=== PATIENT | female | born 1955 | race American Indian/Alaskan Native ===

== ENCOUNTER 2017-03-24 22:41 | Emergency (ER) | payer MEDICARE, OTHER ==
[2017-03-25 01:04] VITALS: BP 130/76
[2017-03-25] MEDS ORDERED: Sodium Chloride 0.9% 10 ML Syringe FLUSH PRN (01:22)
[2017-03-25] MEDS ORDERED: Morphine 4 MG/ML Syringe IVPUSH ONE (01:22)
[2017-03-25] MEDS ORDERED: Ondansetron 4 MG/2 ML SDV IVPUSH ONE (01:22)
--- NOTE | 2017-03-25 01:29 | EDM.PDOC ---
ED HPI GENERAL MEDICAL PROBLEM - General Chief Complaint: Abdominal Pain Stated Complaint: LOWER ABDOMINAL PAIN Time Seen by Provider: 03/25/17 01:04 Source of Information: Reports: Patient, Old Records, RN Notes Reviewed History Limitations: Reports: No Limitations - History of Present Illness INITIAL COMMENTS - FREE TEXT/NARRATIVE: 06.04 brought by her son Chief complaint Abdominal pain and diarrhea History of present illness 61-year-old female with history of well-controlled diabetes, bariatric surgery, cholecystectomy, presents with gradual onset abdominal pain 3 days ago. Associated with nausea but no vomiting. Diarrhea since the onset, 4 times today. No bleeding in the stool. Decrease sleep last night and tonight because of the lower abdominal pain. No radiation No fever or chills She was able to drink fluids adequately today but her appetite was decreased Pain aggravated by walking or by deep breath No history of similar Does use marijuana frequently and heroin he infrequently, has chronic back pain abdomen Pain Score (Numeric/FACES): 9 - Related Data Allergies Allergy/AdvReac Type Severity Reaction Status Date / Time ibuprofen AdvReac Nausea Verified 03/25/17 00:59 ketorolac tromethamine AdvReac Nausea Verified 03/25/17 00:59 [From Toradol] metformin AdvReac Nausea Verified 03/25/17 00:59 Home Meds: Home Meds Aspirin [Ecotrin] 81 mg PO DAILY 03/26/14 [History] Calcium Citrate/Vitamin D3 [[place] Calcium D (200 MG Calcium)] 1 tab PO DAILY [History] Cyanocobalamin (Vitamin B12) [Vitamin B12] 1,000 mcg IM Q30D 03/26/14 [History] Docusate Sodium [Colace] 100 mg PO DAILY 03/26/14 [History] Ferrous Gluconate [Ferrous Gluconate] 324 mg PO DAILY 03/26/14 [History] Insulin Detemir [Levemir] 10 units SQ BID 03/26/14 [History] Ranitidine HCl [Ranitidine] 150 mg PO DAILY 03/26/14 [History] Venlafaxine [Effexor XR] 150 mg PO DAILY 03/26/14 [History] Cyclobenzaprine HCl [Cyclobenzaprine HCl] 10 mg PO TID PRN 10/29/15 [History] Gabapentin [Gabapentin] 400 mg PO TID 10/29/15 [History] Ondansetron [Ondansetron ODT] 4 mg PO TID PRN #5 tab.moosedis 03/25/17 [Rx] Past Medical History Cardiovascular History: Reports: Hypertension Gastrointestinal History: Reports: GERD [employer] History: Reports: , Spontaneous Musculoskeletal History: Reports: Back Pain, Chronic, Fracture, Osteoarthritis Neurological History: Reports: Headaches, Chronic Psychiatric History: Reports: Anxiety, Depression Endocrine/Metabolic History: Reports: Diabetes, Type II Hematologic History: Reports: B12 Deficiency - Infectious Disease History Infectious Disease History: Reports: Chicken Pox - Past Surgical History GI Surgical History: Reports: Bariatric Procedure, Cholecystectomy, Colonoscopy Female Surgical History: Reports: Section Musculoskeletal Surgical History: Reports: Other (See Below) Social & Family History - Tobacco Use Smoking Status *Q: Current Every Day Smoker Years of Tobacco use: 5 Packs/Tins Daily: 1 Used Tobacco, but Quit: No Second Hand Smoke Exposure: Yes - Caffeine Use Caffeine Use: Reports: Coffee, Soda - Alcohol Use Days Per Week of Alcohol Use: 2 Number of Drinks Per Day: 3 Total Drinks Per Week: 6 - Recreational Drug Use Recreational Drug Use: Yes Recreational Drug Type: Reports: Heroin, Marijuana/Hashish Recreational Drug Use Frequency: Monthly ED ROS GENERAL - Review of Systems Review Of Systems: See Below Constitutional: Reports: Fatigue, Decreased Appetite. Denies: Fever, Chills HEENT: Reports: No Symptoms Respiratory: Reports: No Symptoms Cardiovascular: Reports: No Symptoms GI/Abdominal: Reports: Abdominal Pain, Diarrhea, Decreased Appetite, Nausea. Denies: Hematemesis, Hematochezia, Vomiting Musculoskeletal: Reports: Back Pain Skin: Reports: No Symptoms Neurological: Reports: No Symptoms Psychiatric: Reports: Other (sleep disturbance) Immunologic: Reports: No Symptoms ED EXAM, GI/ABD - Physical Exam Exam: See Below Exam Limited By: No Limitations General Appearance: Other (appears quite tired, and prefers to keep her eyes closed, vital signs within normal) Eyes: Bilateral: Normal Appearance Ears: Normal External Exam Nose: Normal Inspection, Normal Mucosa, No Blood. No: Nasal Deformity Throat/Mouth: Normal Inspection, Normal Lips, Normal Teeth, Normal Oropharynx, Normal Voice Head: Atraumatic, Normocephalic Neck: Normal Inspection, Supple. No: Lymphadenopathy (R), Lymphadenopathy (L) Respiratory/Chest: No Respiratory Distress, Lungs Clear, Normal Breath Sounds, No Accessory Muscle Use Cardiovascular: Normal Peripheral Pulses, Regular Rate, Rhythm GI/Abdominal Exam: Normal Bowel Sounds, Soft, No Organomegaly, No Distention, No Mass, Tender (diffuse central lower abdomen). No: Guarding, Rigid, Rebound Extremities: Normal Inspection, Non-Tender Neurological: Alert, Oriented, No Motor/Sensory Deficits Skin Exam: Warm, Dry, Intact, Normal Color, No Rash Course - Vital Signs Last Recorded V/S: Last Vital Signs Temp 36.0 C 03/25/17 01:02 Pulse 65 03/25/17 01:02 Resp 18 03/25/17 01:02 BP 130/76 03/25/17 01:02 Pulse Ox 99 03/25/17 01:02 - Orders/Labs/Meds Orders: Active Orders 24 hr Category Date Time Status Peripheral IV Care [RC] . DIRECTED Care 03/25/17 01:22 Active UA W/MICROSCOPIC [URIN] Stat Lab 03/25/17 01:23 Ordered Sodium Chloride 0.9% [Normal Saline] 1,000 ml Med 03/25/17 01:30 Active IV ASDIRECTED Sodium Chloride 0.9% [Saline Flush] Med 03/25/17 01:22 Active 10 ml FLUSH ASDIRECTED PRN Peripheral IV Insertion Adult [OM.PC] Routine Oth 03/25/17 01:21 Ordered Medication Orders Sodium Chloride (Normal Saline) 1,000 mls @ 250 mls/hr IV ASDIRECTED SARITA Last Admin: 03/25/17 01:45 Dose: 250 mls/hr Sodium Chloride (Saline Flush) 10 ml FLUSH ASDIRECTED PRN PRN Reason: Keep Vein Open Last Admin: 03/25/17 01:50 Dose: 10 ml Labs: Laboratory Tests 03/25/17 03/25/17 03/25/17 Range/Units 01:43 01:43 01:43 WBC 7.9 (4.5-11.0) K/uL RBC 4.32 (3.30-5.50) M/uL Hgb 12.8 (12.0-15.0) g/dL Hct 38.8 (36.0-48.0) % MCV 90 (80-98) fL MCH 30 (27-31) pg MCHC 33 (32-36) % Plt Count 343 (150-400) K/uL Sodium 139 L (140-148) mmol/L Potassium 3.2 L (3.6-5.2) mmol/L Chloride 103 (100-108) mmol/L Carbon Dioxide 27 (21-32) mmol/L Anion Gap 12.2 (5.0-14.0) mmol/L BUN 9 (7-18) mg/dL Creatinine 0.7 (0.6-1.0) mg/dL Est Cr Clr Drug Dosing 70.70 mL/min Estimated GFR (MDRD) > 60 (>60) Glucose 160 H (74-106) mg/dL Lactic Acid 1.4 (0.4-2.0) mmol/L Calcium 8.1 L (8.5-10.1) mg/dL Total Bilirubin 0.3 (0.2-1.0) mg/dL AST 21 (15-37) U/L ALT 24 (12-78) U/L Alkaline Phosphatase 118 H (46-116) U/L Total Protein 6.5 (6.4-8.2) g/dL Albumin 2.8 L (3.4-5.0) g/dL Globulin 3.7 H (2.3-3.5) g/dL Albumin/Globulin Ratio 0.8 L (1.2-2.2) Lipase 190 (73-393) U/L Meds: Medications Generic Name Dose Route Start Last Admin Trade Name Freq PRN Reason Stop Dose Admin Sodium Chloride 1,000 mls @ 250 mls/hr 03/25/17 01:30 03/25/17 01:45 Normal Saline IV 250 mls/hr ASDIRECTED SARITA Administration Sodium Chloride 10 ml 03/25/17 01:22 03/25/17 01:50 Saline Flush FLUSH 10 ml ASDIRECTED PRN Administration Keep Vein Open Discontinued Medications Generic Name Dose Route Start Last Admin Trade Name Freq PRN Reason Stop Dose Admin Morphine Sulfate 4 mg 03/25/17 01:22 03/25/17 01:45 Morphine IVPUSH 03/25/17 01:23 4 mg ONETIME ONE Administration Morphine Sulfate 2 mg 03/25/17 02:38 Morphine IVPUSH 03/25/17 02:39 ONETIME ONE Ondansetron HCl 4 mg 03/25/17 01:22 03/25/17 01:45 Zofran IVPUSH 03/25/17 01:23 4 mg ONETIME ONE Administration - Re-Assessments/Exams Free Text/Narrative Re-Assessment/Exam: 03/25/17 01:28 61-year-old female with 3 days nausea diarrhea abdominal pain. Differential diagnoses includes gastritis, colitis diverticulitis among others. Intravenous saline, morphine 4 mg, ondansetron 4 mg IV and labs ordered 03/25/17 02:36 02.35 improved although she still has some abdominal discomfort WBC hemoglobin creatinine are normal, liver enzymes within normal Most likely viral gastroenteritis She does have slightly low sodium and potassium Encourage electrolyte replacement solutions and oral fluids Additional morphine 2 mg IV 03/25/17 02:38 Departure - Departure Time of Disposition: 03:00 Disposition: Home, Self-Care 01 Condition: Good Clinical Impression: Gastroenteritis, Mild dehydration - Discharge Information Prescriptions: Ondansetron [Ondansetron ODT] 4 mg PO TID PRN #5 tab.rapdis PRN Reason: Nausea or vomiting Instructions: Viral Gastroenteritis, Adult, [id number] Referrals: PCP,None [Primary Care Provider] - Forms: ED Department Discharge Additional Instructions: Drink small amounts of fluids frequently. Electrolyte replacement solutions such as Gatorade or Powerade can help replace the sodium and potassium use through diarrhea. See your physician/clinic 1 week if you are still L Return to emergency for high fevers, fainting, or repeated vomiting - My Orders Last 24 Hours: My Active Orders 03/25/17 01:21 Peripheral IV Insertion Adult [OM.PC] Routine 03/25/17 01:22 Peripheral IV Care [RC] . DIRECTED Sodium Chloride 0.9% [Saline Flush] 10 ml FLUSH ASDIRECTED PRN 03/25/17 01:23 UA W/MICROSCOPIC [URIN] Stat 03/25/17 01:30 Sodium Chloride 0.9% [Normal Saline] 1,000 ml IV ASDIRECTED - Assessment/Plan Last 24 Hours: My Active Orders 03/25/17 01:21 Peripheral IV Insertion Adult [OM.PC] Routine 03/25/17 01:22 Peripheral IV Care [RC] . DIRECTED Sodium Chloride 0.9% [Saline Flush] 10 ml FLUSH ASDIRECTED PRN 03/25/17 01:23 UA W/MICROSCOPIC [URIN] Stat 03/25/17 01:30 Sodium Chloride 0.9% [Normal Saline] 1,000 ml IV ASDIRECTED
[2017-03-25] MEDS ORDERED: Sodium Chloride 0.9% 1,000 ML IV SCH (01:30)
[2017-03-25] MEDS ORDERED: Morphine 2 MG/ML Syringe IVPUSH ONE (02:38)
== END 2017-03-25 03:10 | disposition home or self-care (01) ==
LOC: JP.ED 22:41
DX: K52.9 Noninfective gastroenteritis and colitis, unspecified (principal); E86.0 Dehydration; I10 Essential (primary) hypertension; E11.9 Type 2 diabetes mellitus without complications; F17.210 Nicotine dependence, cigarettes, uncomplicated; Z88.8 Allergy status to other drugs, medicaments and biological substances; Z79.82 Long term (current) use of aspirin; Z79.84 Long term (current) use of oral hypoglycemic drugs
CPT/HCPCS: 36415; 80053; 81001; 83605; 83690; 85027; 96361; 96374; 96375; 96376; 99284; J2270; J2405; J7040; J7050